=== PATIENT | male | born 1995 | race Caucasian/White ===

== ENCOUNTER → 2023-08-14 13:07 | Outpatient (CLI) | payer OTHER, SELFPAY ==
--- NOTE | 2023-08-14 13:22 | XR_ITS ---
FINAL REPORT CLINICAL HISTORY: neck pain FINDINGS: CERVICAL SPINE Three views demonstrate no acute fracture. The disc spaces are well preserved. There is no malalignment. IMPRESSION: No acute process. THORACIC SPINE Two views demonstrate no acute fracture. The disc spaces are well preserved. There is no malalignment. IMPRESSION: No acute process. Reviewed, Interpreted and Dictated by Andrea Nguyen MD Transcribed by Stephanie Lee Authenticated and [facility]
== END ==
LOC: RAD 13:09
PROVIDERS: PCP Nurse Practitioner Family; Visit Provider Nurse Practitioner Family
DX: M54.2 Cervicalgia (principal)
CPT/HCPCS: 72083

== ENCOUNTER 2025-03-29 23:55 | Emergency (ER) | payer OTHER, SELFPAY ==
--- OUTSIDE RECORDS SUMMARY | 2025-03-30 00:03 | XMS_ITS | Continuity of Care Document ---
Author Name [facility] Organization [facility] Care Team Providers Care Range Examiner Name Role Phone [facility] Unavailable Unavailable Problems Combined list of problems from Department of Defense and Veterans Affairs facilities. It does not include entries that were removed or entered in error. Problem Status Onset Date Problem Type Date of Resolution Comments Source ASTIGMATISM - REGULAR Active Condition DoD visit for: services physical Active Condition DoD visit for: ears / hearing exam Active Condition DoD Patient Education - Injury Prevention Active Condition DoD ASSESSMENT OF PATIENT CONDITION WORK-RELATED Active Condition DoD Vaccines Prophylactic Need Against Bacterial Diseases Inactive Condition DoD Need For Vaccination Poliomyelitis Inactive Condition DoD Vaccines Prophylactic Need Against DTP Inactive Condition DoD Need For Vaccination Hepatitis A Inactive Condition DoD Vaccines Prophylactic Need Against Bacterial Diseases Meningococcal Inactive Condition DoD Vaccines Prophylactic Need Against Viral Diseases Inactive Condition DoD headache Inactive Condition DoD ASTIGMATISM Active Condition DoD visit for: examination of subpopulation Active Condition DoD Blood Typing Inactive Condition DoD visit for: screening exam pulmonary tuberculosis Inactive Condition DoD Allergies, Adverse Reactions, Alerts Combined list of allergies from Department of Defense and Veterans Affairs facilities. It does not include entries that were removed or entered in error. Substance Category Reaction Severity Reaction type Status Date Reported Comments Source OTHER {Cla } Drug allergy (disorder) Unknown active 2 [place], [place] OTHER {Cla } Propensity to adverse reactions to drug Unknown Active 2 [place] Unknown Organization Immunizations Combined list of available immunizations from the Department of Defense and Veterans Affairs facilities. Immunization Series Date Given Administered By Site Reaction Lot Number CVX Code Drug Corrections Unit Supervisor Status Comments Source influenza, injectable, quadrivalent 2022 [id number] Seqirus complet ed influenza , injectabl e, quadrival ent 06/20/23 Given Ambulat ory Pharmac y influenza, injectable, quadrivalent 2020 [id number] ID [employer]ical comple t ed influenza , injectabl e, quadrival ent 06/22/21 Given Ambulat ory Pharmac y influenza, injectable, quadrivalent- pf 2019 [id number] 150 Seqirus complet ed influenza , injectabl e, quadrival ent-pf 06/25/20 Given Ambulat ory Pharmac y influenza, injectable, quadrivalent 2018 [id number] 158 Seqirus complet ed influenza , injectabl e, quadrival ent 06/20/19 Given Ambulat ory Pharmac y influenza, injectable, quadrivalent- pf 2017 [id number] GlaxoSmithKli ne complet ed influenza , injectabl e, quadrival ent-pf 06/23/18 Given Ambulat ory Pharmac y influenza virus vaccine, inactivated 2016 [id number] Seqirus complet ed influenza virus vaccine, inactivat ed 06/22/17 Given Ambulat ory Pharmac y influenza, seasonal, injectable-pf 2015 [id number] Seqirus complet ed influenza , seasonal, injectabl e-pf 06/20/16 Given Ambulat ory Pharmac y influenza, injectable, quadrivalent- pf 2013 [id number] Novartis Pharmaceutica ls complet ed influenza , injectabl e, quadrival ent-pf 06/24/14 Given Ambulat ory Pharmac y hepatitis A adult vaccine 2013 [id number] 52 GlaxoSmithKli ne complet ed hepatitis A adult vaccine 10/14/13 Given Ambulat ory Pharmac y influenza, seasonal, injectable-pf 2012 [id number] Novartis Pharmaceutica ls complet ed influenza , seasonal, injectabl e-pf 07/03/13 Given Ambulat ory Pharmac y influenza, seasonal, injectable 2011 [id number] 141 GlaxoSmithKli ne complet ed influenza , seasonal, injectabl e 04/25/12 Given Ambulat ory Pharmac y Influenza, seasonal, injectable 1 2011 [id number] 141 SmithKline (SKB) complet ed Influenza , seasonal, injectabl e DoD measles, mumps and rubella virus vaccine 1 2011 UNK 03 Unknown (UNK) Not Given measles, mumps and rubella virus vaccine DoD varicella virus vaccine 1 2011 UNK 21 Unknown (UNK) Not Given varicella virus vaccine DoD hepatitis B vaccine, adult dosage 1 2011 UNK 43 Unknown (UNK) Not Given hepatitis B vaccine, adult dosage DoD meningococcal A,C,Y,W-135 (MCV4P) 2011 [id number] sanofi pasteur complet ed meningoco ccal A,C,Y,W-1 35 (MCV4P) 01/17/12 Given Ambulat ory Pharmac y tetanus, diphtheria, acellular pertu is 2011 [id number] 115 GlaxoSmithKli ne complet ed tetanus, diphtheri a, acellular pertussis 01/17/12 Given Ambulat ory Pharmac y adenovirus vaccine, live 2011 [id number] 143 Teva Pharmaceutica ls complet ed adenoviru s vaccine, live 01/17/12 Given Ambulat ory Pharmac y Hep A, ped/adol, 2 dose 2011 [id number] 83 GlaxoSmithKli ne complet ed Hep A, ped/adol, 2 dose 01/17/12 Given Ambulat ory Pharmac y poliovirus vaccine, inactivated 2011 [id number] 10 sanofi pasteur complet ed polioviru s vaccine, inactivat ed 01/17/12 Given Ambulat ory Pharmac y poliovirus vaccine, inactivated 1 2011 [id number] 10 Sanofi Pasteur (PMC) complet ed polioviru s vaccine, inactivat ed DoD hepatitis A vaccine, pediatric/ado lescent dosage, 2 dose schedule 1 2011 [id number] [id number] 83 [facility] (SKB) complet ed hepatitis A vaccine, pediatric /adolesce nt dosage, 2 dose schedule DoD meningococcal polysaccharid e (groups A, C, Y and W-135) diphtheria toxoid conjugate vaccine (MCV4P) 1 2011 [id number] Sanofi Pasteur (PMC) complet ed meningoco ccal polysacch aride (groups A, C, Y and W-135) diphtheri a toxoid conjugate vaccine (MCV4P) DoD tetanus toxoid, reduced diphtheria toxoid, and acellular pertu is vaccine, adsorbed 1 2011 [id number] 115 [facility] (SKB) complet ed tetanus toxoid, reduced diphtheri a toxoid, and acellular pertussis vaccine, adsorbed DoD Adenovirus, type 4 and type 7, live, oral 1 2011 [id number] 143 [facility] ([facility]) complet ed Adenoviru s, type 4 and type 7, live, oral DoD tuberculin purified protein derivative 05/30/ 2012 [id number] sanofi pasteur [facility] ed tuberculi n purified protein derivativ e 01/15/12 Given Ambulat ory Pharmac y Encounters Combined list of: 1) Encounters from Department of Veterans Affairs facilities going backup to the last 18 months, not all VA inpatient encounters are included; 2) Encounters from the Department of Defense facilities going backup to 280 months. Location Location Details Encounter Type Encounter Number Reason For Visit Attending Provider ADM Date DC Date Status Disposition Source [facility](IEP Soldiers Initial Entry) OUTPATIENT [id number] Notes Entered by: GABRIEL PERAZA 15 Jan 2012 0553 ------- ------- ------- ------- -- [id number] DAY RAMON SILVERMAN III 01/14 Released w/o Limitations [facility] [place](IEP Jud s Initial Entry) [facility] [place](IEP Optometry ) OUTPATIENT [id number] FADUMO SAMAYOA 01/14 Released w/o Limitations [facility] [place](IEP Optomet ry) [facility] [place](C-TMC Er Module) OUTPATIENT [id number] allergy verific ation NOY RAMÍREZ 01/15 Released w/o Limitations [facility] [place](C-TM C Er Module) [facility] [place](IEP Soldiers Initial Entry) OUTPATIENT [id number] MAC REILLY 01/16 Released w/o Limitations [facility] [place](IEP Jud s Initial Entry) [facility] [place](IEP Hearing Conservat ion Exam) OUTPATIENT [id number] FREDA SIMON 01/19 Released w/o Limitations [facility](IEP Hearing Conserv ation Exam) [facility]-2 Optometry [place]) OUTPATIENT [id number] Notes Entered by: BLAS RIGGS 30 Mar 2013 0823 ------- ------- ------- ------- -- Exam ANA SCHULER 03/30 Released w/o Limitations [facility](C -2 Optomet ry [place]) Procedures Combined list of: 1) Procedures from Department of Veterans Affairs facilities going back up to thelast 18 months, not all VA non-surgical procedures are included; 2) All procedures from the Department of Defense facilities. Procedure Procedure Type Code Date Perfomer Comments Sourc e No data available for this section Ambulato ry Pharmacy [facility] Fitting Monofocals (Not For Aphakia) [facility] Fitting Monofocals (Not For Aphakia) 62101 ANA SCHULER Determination Of Refractive State Determination Of Refractive State 77705 ANA SCHULER Ophthalmological New Patient Start Comprehensive Care Ophthalmological New Patient Start Comprehensive Care 93259 ANA SCHULER Audiometry Group Testing Audiometry Group Testing [address] Supervised Injection Intramuscular Antibiotic Supervised Injection Intramuscular Antibiotic 36757 MAC REILLY Immunization Administration One Vaccine Immunization Administration One Vaccine 12978 MAC REILLY Immunization Administration Each Additional Vaccine MAC REILLY Vaccines Viral Polio, Inactivated (Salk) Vaccines Viral Polio, Inactivated (Salk) 57918 MAC REILLY Tdap Vaccine Tdap Vaccine 63081 MAC REILLY Hep A Vac Ped/Adol Dosage (Intramusc Use) 2 Dose Schedule Hep A Vac Ped/Adol Dosage (Intramusc Use) 2 Dose Schedule [address] Supervised Injection Intramuscular DrJoselo Supervised Injection Intramuscular 99153 MAC VALERIO Meningococcal Conjugate Vaccine Tetravalent (A C Y W-135) MAC REILLY Immunization Admin By Intranasal / Oral Route One Vaccine Immunization Admin By Intranasal / Oral Route One Vaccine 67623 TOMMIEMAC Sj [facility] Vaccines Adenovirus Type 4 Live, For Oral Use Vaccines Adenovirus Type 4 Live, For Oral Use 78667 012 TOMMIE MAC Gustafson [facility] Vaccines Adenovirus Type 7 Live, For Oral Use Vaccines Adenovirus Type 7 Live, For Oral Use 60406 012 TOMMIEMAC Sj [facility] A e /Interv Discharge Meds Reconciled W/ Current Meds List NOY RAMÍREZ [facility] Screening Test Of Visual Acuity, Quantitative, Bilateral Screening Test Of Visual Acuity, Quantitative, Bilateral 70924 [facility] Determination Of Refractive State Determination Of Refractive State 22823 BENYFADUMO [facility] Fitting Monofocals (Not For Aphakia) [facility] Fitting Monofocals (Not For Aphakia) 55395 FADUMO ALDANA [facility] Venipuncture Venipuncture 66418 RAMON SILVERMAN III [facility] Skin Test Anergy tuberculin Skin Test Anergy tuberculin 16142 RAMON SILVERMAN III [facility] FITTING OF SPECTACLES, EXCEPT FOR APHAKIA; MONOFOCAL 013 [facility] AUDIOMETRIC TESTING OF GROUPS [facility] MENINGOCOCCAL CONJUGATE VACCINE, SEROGROUPS A, C, W, Y, QUADRIVALENT, DIPHTHERIA TOXOID CARRIER (MENACWY-D) OR [id number] CARRIER (MENACWY-CRM), FOR INTRAMUSCULAR USE [facility] DISCHARGE MEDICATIONS RECONCILED WITH THE CURRENT MEDICATION LIST IN OUTPATIENT MEDICAL RECORD (COA) (MARKUS) [facility] SCREENING TEST OF VISUAL ACUITY, QUANTITATIVE, BILATERAL [facility] SKIN TEST; TUBERCULOSIS, INTRADERMAL [facility] Social History Combined list of available smoking, tobacco, and other social history from Department of Defense and Veterans Affairs facilities. Social History Type Response Date Comment Sour e This section is an empty social history section. DoD Assessment and Plan Combined list of future care activities from Department of Defense and Veterans Affairs facilities (e.g., assessment and plan notes, appointments, orders, and referrals). Additional future care activities may be listed in the Plan of Care section. Result Assessment and Plan Date Source Assessment and Plan No data available for this section 03/30/2025 Ambulatory Pharmacy Functional Status Combined list of recent functional and cognitive assessments recorded at Department of Defense and Veterans Affairs (VA).VA Functional [place] Measurement (FIM) Scale: 1 = Total Assistance (Subject = 0% +), 2 = Maximal Assistance (Subject = 25% +), 3 = Moderate Assistance (Subject = 50% +), 4 = Minimal Assistance (Subject = 75% +), 5 = Supervision, 6 = Modified [place] (Device), 7 = Complete [place] (Timely, Safely). Assessment Date/Time Source Assessment Type Assessment Skill Assessment Score Assessment Details No data available for this section
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
[2025-03-30 00:07] VITALS: BP 135/95; PULSE 70; RESP 16; TEMP 36.6; O2SAT 99; BMI 27.3
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
[2025-03-30] MEDS: LIDOCAINE 5% TRANSDERMAL PATCH 1 EACH TD (00:23)
[2025-03-30] MEDS: ACETAMINOPHEN 500MG TAB 1000 MG PO (00:23)
[2025-03-30 00:30] VITALS: BP 135/95; PULSE 82; RESP 14; O2SAT 97
[2025-03-30 01:00] VITALS: BP 122/81; PULSE 67; O2SAT 97
[2025-03-30 01:35] VITALS: BP 145/106; PULSE 71; RESP 14; TEMP 36.6; O2SAT 99
== END 2025-03-30 01:36 | disposition home or self-care (01) ==
PROVIDERS: Emergency Provider Emergency Medicine; PCP Nurse Practitioner Family
DX: M54.2 Cervicalgia (principal); S00.03XA Contusion of scalp, initial encounter; V49.9XXA Car occupant (driver) (passenger) injured in unspecified traffic accident, initial encounter; Y92.410 Unspecified street and highway as the place of occurrence of the external cause
CPT/HCPCS: 70450; 72125; 72128; 99285